=== PATIENT | male | born 1985 | race Caucasian/White ===

== ENCOUNTER 2020-01-24 18:32 | Inpatient (IN) | payer OTHER ==
[~2020-01-24] VITALS: Ht 185.4 cm; Wt 72.1 kg
[2020-01-24 18:45] LABS: Calcium, Ionized (POC) 1.14 mmol/L (1.10-1.46); Chloride (POC) 106 mmol/L (98-108); Creatinine (POC) 2.6 mg/dL (0.8-1.3); Glucose (ISTAT POC) 243 mg/dL (70-99); Hemoglobin (POC) 9.9 g/dL (13.5-17.5); Potassium (POC) 4.4 mmol/L (3.5-5.5); Sodium (POC) 140 mmol/L (135-148); Total CO2 (POC) 21 mmol/L (21-32)
[2020-01-24] MEDS ORDERED: LIPITOR80 MG PO (19:01)
[2020-01-24] MEDS ORDERED: LANTUS SOL100 UNIT/1 SC (19:02)
[2020-01-24] MEDS ORDERED: ADMELOG100 UNIT/2 SC ×2 (19:02→19:04)
[2020-01-24 20:40] LABS: BASOPHILS ABSOLUTE AUTO 0.05 K/mm3 (0.00-0.23); BASOPHILS PERCENT AUTO 0 % (0-2); EOSINOPHILS ABSOLUTE AUTO 0.01 K/mm3 (0.00-0.68); EOSINOPHILS PERCENT AUTO 0 % (0-6); Hematocrit 29.7 % (37.0-53.0); Hemoglobin 9.2 g/dL (13.5-17.5); IMMATURE GRAN PERCENT AUTO 1 % (0-1); LYMPHOCYTES ABSOLUTE AUTO 1.63 K/mm3 (0.84-5.20); LYMPHOCYTES PERCENT AUTO 8 % (21-46); MONOCYTES ABSOLUTE AUTO 1.64 K/mm3 (0.16-1.47); MONOCYTES PERCENT AUTO 8 % (4-13); Mean Corpuscular HGB 27.4 pg (26.0-34.0); Mean Corpuscular Volume 88 fL (80-100); Mean Platelet Volume 9.6 fL (9.1-12.4); NEUTROPHILS ABSOLUTE AUTO 17.66 K/mm3 (1.96-9.15); NEUTROPHILS PERCENT AUTO 84 % (41-73); Platelet Count 305 K/mm3 (150-400); RDW Coefficient Variation 13.4 % (11.7-14.2); RDW Standard Deviation 43.4 fL (35.1-46.3); Red Blood Cell Count 3.36 M/mm3 (4.30-5.90); White Blood Cell Count 21.09 K/mm3 (4.00-11.30)
[2020-01-24 20:57] LABS: Source, Urine Clean Catch
[2020-01-24 21:00] LABS: Albumin, Blood 2.5 g/dL (3.4-5.0); Albumin/Globulin Ratio 0.7 (0.8-1.8); Bilirubin, Total 0.4 mg/dL (0.1-1.0); Bun/Creatinine Ratio 17.3 (12.0-20.0); Creatinine, Blood 2.43 mg/dL (0.60-1.20); Globulin, Blood 3.4 g/dL (2.2-4.0); Potassium, Blood 4.5 mmol/L (3.5-5.5); Total Protein, Blood 5.9 g/dL (6.4-8.2)
[2020-01-24 21:01] LABS: Bilirubin, Urine Neg (Neg); Blood, Urine Neg (Neg); Glucose Qualitative, Urine 4+ (Neg); Ketones, Urine 3+ (Neg); Leukocyte Esterase, Urine Neg (Neg); Nitrite, Urine Neg (Neg); Protein, Urine 2+ (Neg); Specific Gravity, Urine 1.015 (1.003-1.022); Urobilinogen, Urine NORM (Normal)
[2020-01-24 21:05] LABS: Appearance, Urine Clear (Clear); Color, Urine Yellow (P-Yellow)
[2020-01-24 21:07] LABS: Bacteria Mod /hpf; Red Blood Cells, Urine 0-2 /hpf (0-2); Squamous Epithelial Cells Rare /hpf (Few)
[2020-01-24 21:11] LABS: U Amphetamine Screen Not Detected; U Barbituate Screen Not Detected; U Benzodiazapine Screen Not Detected; U Buprenorphine Screen Not Detected; U Cannabinoids Screen Not Detected; U Cocaine Screen Not Detected; U Methadone Screen Not Detected; U Methamphetamine Screen Not Detected; U Opiates Screen Not Detected; U Oxycodone Screen Not Detected; U Phencyclidine Screen Not Detected; U Propoxyphene Screen Not Detected
[2020-01-25 02:28] LABS: BASOPHILS ABSOLUTE AUTO 0.04 K/mm3 (0.00-0.23); BASOPHILS PERCENT AUTO 0 % (0-2); EOSINOPHILS ABSOLUTE AUTO 0.03 K/mm3 (0.00-0.68); EOSINOPHILS PERCENT AUTO 0 % (0-6); Hematocrit 26.9 % (37.0-53.0); Hemoglobin 8.5 g/dL (13.5-17.5); IMMATURE GRAN ABSOLUTE AUTO 0.05 K/mm3 (0.00-0.10); IMMATURE GRAN PERCENT AUTO 0 % (0-1); LYMPHOCYTES ABSOLUTE AUTO 2.63 K/mm3 (0.84-5.20); LYMPHOCYTES PERCENT AUTO 15 % (21-46); MONOCYTES ABSOLUTE AUTO 1.33 K/mm3 (0.16-1.47); MONOCYTES PERCENT AUTO 8 % (4-13); Mean Corpuscular HGB 27.4 pg (26.0-34.0); Mean Corpuscular HGB Conc 31.6 g/dL (31.5-36.5); Mean Corpuscular Volume 87 fL (80-100); Mean Platelet Volume 9.3 fL (9.1-12.4); NEUTROPHILS ABSOLUTE AUTO 12.98 K/mm3 (1.96-9.15); NEUTROPHILS PERCENT AUTO 76 % (41-73); Platelet Count 293 K/mm3 (150-400); RDW Coefficient Variation 13.5 % (11.7-14.2); RDW Standard Deviation 42.7 fL (35.1-46.3); White Blood Cell Count 17.06 K/mm3 (4.00-11.30)
[2020-01-25 02:46] LABS: Albumin, Blood 2.3 g/dL (3.4-5.0); Albumin/Globulin Ratio 0.7 (0.8-1.8); Bilirubin, Total 0.3 mg/dL (0.1-1.0); Calcium, Blood 7.7 mg/dL (8.5-10.1); Creatinine, Blood 2.44 mg/dL (0.60-1.20); Globulin, Blood 3.3 g/dL (2.2-4.0); Potassium, Blood 3.8 mmol/L (3.5-5.5); Total Protein, Blood 5.6 g/dL (6.4-8.2)
--- NOTE | 2020-01-25 05:49 | NUR ---
SHIFT SUMMARY PT HAD UNEVENTFUL SHIFT. REMAINS ALERT AND ORIENTED. MAKES NEEDS KNOWN. VERY DROWSY. SR-ST ON MONITOR, BPS IMPROVED, SBP >90 NOW. 18G TO RIGHT AC WITH D51/2NS INF @ 125ML/HR, SITE WNL, DRESSING C/D/I. PT HAS 18G TO LEFT AC WITH INSULIN INF @ 1 ML/HR AND NS @ KVO, SITE WNL, DRESSING C/D/I. PT SKIN C/D/I. VOIDS PER URINAL, 1 EPISODE OF INCONTINENCE DURING SHIFT. NO VOMITING. ABD SOFT AND NONTENDER. LUNG SOUNDS CLEAR, PT ON RA, SATS >92%. CBG STABLE, GAP 6, CO2 27. NEXT CHEMISTRY DUE AT 0830. CALL LIGHT IN REACH. WILL REPORT TO ONCOMING SHIFT.
--- NOTE | 2020-01-25 07:05 | NUR ---
ASSUMED CARE: RECEIVED REPORT FROM NOC RN. UPON ENTERING THE ROOM BLOOD IS NOTED ON THE PT PILLOW AND BLANKETS. PT STATES HE HAD A BLOODY NOSE. GAVE PT A WET CLOTH AND HAD HIM CLEAN UP HIS FACE. GAVE A NEW PILLOW. INSULIN IS NOTED TO BE RUNNING AT 1 UNIT/HR. WILL CONTINUE TO MONIOTOR AND ASSESS FRUTHER. NO ACUTE DISTRESS NOTED.
--- NOTE | 2020-01-25 09:00 | NUR ---
DR GRANT UPDATED DR GRANT WITH PT LABS. NEW ORDERS FOR DIET AND INSULIN.
[2020-01-25 09:13] LABS: Bun/Creatinine Ratio 16.5 (12.0-20.0); Creatinine, Blood 2.24 mg/dL (0.60-1.20); Potassium, Blood 3.6 mmol/L (3.5-5.5)
--- NOTE | 2020-01-25 09:59 | NUR ---
RETENTION AND INCONTENANCE: RECEIVED A CALL FROM THE ENVIRONMENTAL SERVICE AIDE NOTIAFYING THAT PT POST VOID RESIDUAL WAS NOTED TO BE >600. GOT PT UP TO STAND BY THE BED TO ATTEMPT TO VOID AND PT IS NOTED TO HAVE A DIRTY ATTENDS THAT APPEARS TO HAVE BOTH URINE AND STOOL IN IT. PT STATES HE HAS A 12 YEAR HISTORY OF D[place]HREA AND HAS BEEN PREVIOUSLY TESTED FOR C-DIFF THAT WAS NEGATIVE. PT VOIDS APPROX 100ML OF URINE AND STATES THAT HE CAN'T GO ANY MORE, BECAUSE IF HE PUSHES ANY MORE HE WILL JUST POOP. ASSISTED PT TO THE TOILET AFTER PLACING UMBRELLA MENDER SOCKS. GOWN, AND LINENS CHANGED CLEANED PT UP WITH WET WIPES AND HAD NEW PULL UP PLACED AND PJ PANTS INSTEAD OF A GOWN. PT STATES HE IS UNABLE TO WIPE HIMSELF "WITH ALL THESE CORDS" THIS RN CLEANS UP HIS BACK SIDE AND LEGS OF STOOL. BLADDER SCANNER NOTED >600ML CALLED DR GRANT AND GOT ORDER FOR STREIGHT CATH. NOTIFIED OF LOOSE STOOL AND DENIED NEED FOR STOOL SAMPLE D/T IT BEING A CHRONIC ISSUE. PLACED JUAN AND WILL REMOVE IN APPROX 30 MIN AFTER BLADDER HAS DRAINED FULLY.
--- NOTE | 2020-01-25 10:50 | NUR ---
INSULIN STOPPED AT THIS TIME. JUAN REMOVED AND PT HAD A TOTAL OF 700ML OUT
--- NOTE | 2020-01-25 11:13 | NUR ---
UPDATED MOTHER: MOTHER CALLED AND STATES SHE HAS TO ARANGE FOR SOMEONE TO DRIVE WITH HER TO COME GET PT AND NEEDS TO KNOW SOON POSSIBLE IF PT IS GOING TO BE DISCHARGED. ATTEMPTED TO CALL DR GRANT TO SEE IF WE HAVE A PLAN TO WHEN PT MAY BE DISCHARGED. AWAITING CALL BACK.
--- NOTE | 2020-01-25 11:57 | NUR ---
LUNCH: OFFERED PT HIS LUNCH TRAY, PT IS DIFFICULT TO UNDERSTAND DUE TO THE LOW VOLUME OF HIS VOICE AND MUMMBLING. TRAY IS TAKEN INTO THE ROOM, BUT PT DOES NOT APPEAR INTERESTED IN IT AT THIS TIME. WILL CONITNUE TO MONIOTR. FAST ACTING INSULIN HELD UNTIL IT IS DETERMINED IF PT EATS HIS FOOD.
--- NOTE | 2020-01-25 13:14 | NUR ---
REPORT GIVEN PT GOING TO 305
--- NOTE | 2020-01-25 14:57 | NUR ---
PT ARRIVED TO UNIT @ APPROX 1400 FROM ICU. REPORT WAS GIVEN BY SHARMIN MORGAN PRIOR TO TRANSFER. PT ARRIVED AND REQUESTED TO TAKE SHOWER, PT AMBULATED INDEPENDENTLY TO THE BATHROOM AND STATED HE FELT STEADY AND REPORTED NO DIZZINESS. AFTER SHOWER AN ASSESSMENT WAS COMPLETED. A&Ox4. LUNG SOUNDS ARE CLEAR, BOWEL SOUNDS ARE ACTIVE. RADIAL AND PEDIS PULSES ARE PALPABLE. IV IN THE R AC WAS REMOVED BECAUSE PT STATES IT WAS BOTHERING HIM AND UNCORMFORTABLE. IV SITE LOOKED WNL AND FLUSHED WITH NO ISSUES, WAS REMOVED ANYWAY @ PT REQUEST. IV IN L FA IS PATENT AND FLUSHED WELL. PT REPORTS A SORE THROAT DUE EXCESSIVE VOMITING PRIOR TO ADMISSION. WARM LIQUIDS ENCOURAGED. PT IS OREINTED TO ROOM AND CALL SYSTEM, BED IS IN LOWEST POSITION AND CALL LIGHT WITHIN REACH. NON SKID SOCKS ARE ON.
[2020-01-25 15:10] LABS: Bun/Creatinine Ratio 16.5 (12.0-20.0); Calcium, Blood 8.1 mg/dL (8.5-10.1)
--- NOTE | 2020-01-25 17:11 | NUR ---
SHIFT SUMMARY PT TRANSFERED FROM ICU THIS SHIFT. VS ASSESSED TWICE SINCE ARRIVAL, BP WAS ELVATED COMPARED TO PREVIOUSLY DOCUMENTED VS. CALLED DR GRANT WHO BEGAN NORVASC SCHEDULED AND AMLODIPINE PRN FOR SBP HIGHER THAN 180. NORVASC WAS ADMINISTERED. PT IS SOMEWHAT WITHDRAWN AND REPORTS THAT HE JUST WANTS TO GO HOME. HE LAYS IN BED AND DOES NOT REALLY INTERACT WHEN CARE IS PROVIDED; HOWEVER, HE DOES ALLOW CARE TO BE COMPLETED PRN. PT IS CURRENTLY LYING IN BED WITH BED IN LOWEST POSITION AND CALL LIGHT WITHIN REACH. POSSIBLE DISCHARGE TOMORROW. MOTHER - DELICIA - TO BE INFORMED OF ANY CHANGES IN DISCHARGE PLAN DUE TO HIS FATHER NEEDING TO TAKE OFF WORK AND COME FROM [place].
[2020-01-25 20:51] LABS: Bun/Creatinine Ratio 14.8 (12.0-20.0); Calcium, Blood 8.4 mg/dL (8.5-10.1); Creatinine, Blood 1.89 mg/dL (0.60-1.20); Potassium, Blood 3.7 mmol/L (3.5-5.5)
--- NOTE | 2020-01-26 05:05 | NUR ---
SHIFT SUMMARY PT AOX4 AND INDEPENDENT IN THE ROOM. PT HAD AN EPISODE OF URINARY RETENTION; CALLED THE DR AND RECEIVED AN ORDER FOR BLADDER SCAN Q6 AND STRAIGHT CATH ONCE- 600ML OUT. PT STATED HE FELT BETTER. PT BP HAS BEEN ELEVATED SINCE YESTERDAY AND FOR MY SHIFT- PT RESTING AND NO PAIN; INFORMED THE SHUTTLE SPOTTER AND WILL NOTIFY THE AM NURSE ABOUT THE BP. BED IS IN THE LOWEST POSITION AND CALL LIGHTS WITHIN REACH.
[2020-01-26 05:38] LABS: Anion Gap 5 mmol/L (6-16); Blood Urea Nitrogen 22 mg/dL (8-24); Bun/Creatinine Ratio 15.4 (12.0-20.0); CO2, Blood 29 mmol/L (21-32); Chloride, Blood 107 mmol/L (98-108); Creatinine, Blood 1.43 mg/dL (0.60-1.20); Glomerular Filtration Rate >60 (60-); Glucose, Blood 187 mg/dL (70-99); Potassium, Blood 3.6 mmol/L (3.5-5.5); Sodium, Blood 141 mmol/L (136-145)
[2020-01-26] MEDS ORDERED: AMLO5 PO (09:48)
[2020-01-26] MEDS ORDERED: Prinivil10 MG PO (11:40)
--- NOTE | 2020-01-26 12:04 | NUR ---
DISCHARGE INSTRUCTIONS REVIEWED WITH PT. IV DC'D INTACT. PT REPORTS VOIDING WELL THIS AM AFTER STRAIGHT CATH BY NIGHT RN. BP NOTED TO BE 166/116 HR [address] ASH NOTIFIED, PER DR ASH GIVE ANOTHER 5MG DOSE OF NORVASC NOW AND ADD LISINOPRIL 10MG PO DAILY PRN SBP >160 OR DBP >100 5 TABS TO BE CALLED IN. RX CALLED TO [facility] IN [place]. PT MOTHER HERE TO PICK PT UP. EDUCATED PT ON MONITOR BLOOD GLUCOSE AT HOME AND UNSULIN ORDERED WELL MONITOR BLOOD PRESSURE. PT HAS A F/U WITH PCP 01/31. PT DC'D HOME, ESCORTED OUT VIA W/C AT 1153. PT DID REFUSE HOSPITAL LUNCH AND REPORTS HE HAS HIS INSULIN IN THE CAR WITH HIS MOM.
== END 2020-01-26 11:56 | disposition home or self-care (01) | DRG 638 ==
LOC: ER 18:32 → ICUW 18:33 → ER 19:52 → ICUW 19:52 → MEDS 01-25 13:49
PROVIDERS: Emergency Medicine; Internal Medicine; ADMIT Internal Medicine
DX: E10.10 Type 1 diabetes mellitus with ketoacidosis without coma (principal); N17.9 Acute kidney failure, unspecified; E78.5 Hyperlipidemia, unspecified; I10 Essential (primary) hypertension; E86.0 Dehydration; Z91.14 Patient's other noncompliance with medication regimen; I95.9 Hypotension, unspecified; F90.9 Attention-deficit hyperactivity disorder, unspecified type
CPT/HCPCS: 36415; 76770; 80047; 80048; 80053; 81001; 82947; 85014; 85025; 87086; 96372; 96374; 96375; 96376; 99285-25; A9270; A9270-GY; C9113; G0378; J1650; J1815; J2405; J7030; J7040; J7042; J7070